=== PATIENT | male | born 1950 | race Two or more races ===

== ENCOUNTER 2024-07-08 19:11 | Inpatient (IN) | payer OTHER, MEDICAID ==
[~2024-07-08] VITALS: Ht 172.7 cm; Wt 79.3 kg
[2024-07-08] MEDS: SODIUM CHLORIDE 0.9% 1,000 ML IV SCH (01:10)
--- NOTE | 2024-07-08 19:34 | ED.PDOC ---
Altered Mental Status HPI Comments 73-year-old male who came to ER via EMS for altered level of consciousness. Per EMS, was picked up at home where family members noted patient to be acting altered and confused, slurred speech, generally weak and lethargic. Noted to be hypotensive on scene a 60/30 mmHg. Patient was given IV fluids, and it improved to 100/65 mmHg. Blood sugar was 98 and was saturating 100% on room air Chief Complaint: ALOC Time Seen by MD: 19:33 Reviewed Notes: Nurses Notes Information Source: Patient Mode of Arrival: EMS Severity: Unable to Care for Self Timing: Hours Duration: Since onset Quality: Decreased Alertness, Change in Behavior, Confusion Recent: None History of: Diabetes Past Medical History PAST MEDICAL HISTORY: DM, High Lipids, HTN Past Medical History (Other): Chronic back pain Surgical History: Pt Confused Family History Family History: Pt Confused Social History Smoker: Pt Confused Alcohol: Pt Confused Drugs: Pt Confused Lives In: Home Constitutional: reports: fatigue, weakness; denies: chills, diaphoresis, fever, malaise, sweats, others EENTM: denies: blurred vision, double vision, ear bleeding, ear discharge, ear drainage, ear pain, ear ringing, eye pain, eye redness, hearing loss, mouth pain, mouth swelling, nasal discharge, nose bleeding, nose congestion, nose pain, photophobia, tearing, throat pain, throat swelling, voice changes, others Respiratory: denies: cough, hemoptysis, orthopnea, SOB at rest, shortness of breath, SOB with excertion, stridor, wheezing, others Cardiovascular: denies: chest pain, dizzy spells, diaphoresis, Dyspnea on exertion, edema, irregular heart beat, left arm pain, lightheadedness, palpitations, PND, syncope, others Gastrointestinal: denies: abdomen distended, abdominal pain, blood streaked bowels, constipated, diarrhea, dysphagia, difficulty swallowing, hematemesis, melena, nausea, poor appetite, poor fluid intake, rectal bleeding, rectal pain, vomiting, others Genitourinary: denies: burning, dysuria, flank pain, frequency, hematuria, incontinence, penile discharge, penile sore, pain, testicle pain, testicle swelling, urgency, others Neurological: denies: dizziness, fainting, headache, left sided numbness, left sided weakness, numbness, paresthesia, pre-existing deficit, right sided numbness, right sided weakness, seizure, speech problems, tingling, tremors, weakness, others Musculoskeletal: denies: back pain, gout, joint pain, joint swelling, muscle pain, muscle stiffness, neck pain, others Integumetry: denies: bruises, change in color, change in hair/nails, dryness, laceration, lesions, lumps, rash, wounds, others Allergic/Immunocompromised: denies: Difficulty Healing, Frequent Infections, Hives, Itching, others Hematologic/Lymphatic: denies: anemia, blood clots, easy bleeding, easy bruising, swollen glands, others Endocrine: denies: excessive hunger, excessive sweating, excessive thirst, excessive urination, flushing, intolerance to cold, intolerance to heat, unexplained weight gain, unexplained weight loss, others Psychiatric: denies: anxiety, bipolar disorder, depression, hopeless, panic disorder, schizophrenia, sleepless, suicidal, others Physical Exam General Appearance: Mild Distress, Normal HEENT: Normal ENT Inspection, Pharynx Normal, TMs Normal Neck: Full Range of Motion, Non-Tender, Normal, Normal Inspection Respiratory: Chest Non-Tender, Lungs Clear, No Accessory Muscle Use, No R espiratory Distress, Normal Breath Sounds Cardiovascular: No Edema, No JVD, No Murmur, No Gallop, Normal Peripheral Pulses, Regular Rate/Rhythm Breast Exam: Deferred Gastrointestinal: No Organomegaly, Non Tender, No Pulsatile Mass, Normal Bowel Sounds, Soft Genitalia: Deferred Pelvic: Deferred Rectal: Deferred Extremities: No calf tenderness, Normal capillary refill, Normal inspection, Normal range of motion, Non-tender, No pedal edema Musculoskeletal : Apperance: Normal 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 Was a procedure done?: No Differential Diagnosis (ALOC) Differential Diagnosis: Dehydration, Encephalopathy, Seizure, CVA, Drug Overdose, Renal Failure, Other (Hypotension) X-Ray, Labs, Meds, VS Vital Signs Date Time Temp Pulse Resp B/P (MAP) Pulse Ox O2 Delivery O2 Flow Rate FiO2 07/08/24 19:40 97.7 68 14 138/114 (122) 94 97.7 07/08/24 19:11 97.6 74 18 100/54 (69) 99 Lab Test 07/08/24 21:28 07/08/24 21:12 07/08/24 20:09 Range/Units Troponin I High Sensitivity Pending 3 L </=54 ng/L Urine Color Yellow Yellow Urine Clarity Turbid H Clear Urine pH 6.0 5.0-9.0 Urine Specific [place] 1.017 1.001-1.035 Urine Protein Trace H Negative Urine Ketones Negative Negative Urine Blood Negative Negative /uL Urine Nitrite Negative Negative Urine Bilirubin Negative Negative Urine Urobilinogen Normal Negative mg/dL Urine Leukocyte Esterase Negative Negative /uL Urine RBC None seen 0 - 3 /hpf Urine Microscopic WBC 2 0-3 /HPF Urine Squamous Epithelial Cells Few <5 /hpf Urine Bacteria None seen None Seen /hpf Urine Hyaline Casts Mod 0 - 2 /lpf Urine Mucus Few None Seen Urine Glucose Normal Normal mg/dL Urine Opiates Screen Pending Urine Fentanyl Screen Pending Urine Barbiturates Screen Pending Urine Phencyclidine Screen Pending Urine Amphetamines Screen Pending Urine Benzodiazepines Screen Pending Urine Cocaine Screen Pending Urine Cannabinoids Screen Pending White Blood Count 5.9 4.4-10.8 10^3/uL Red Blood Count 4.08 L 4.5-5.90 10^6/uL Hemoglobin 13.6 13.5-17.5 g/dL Hematocrit 40.9 L 41.0-53.0 % Mean Corpuscular Volume 100.2 H 80.0-100.0 fL Mean Corpuscular Hemoglobin 33.4 H 28.0-32.0 pg Mean Corpuscular Hemoglobin Concent 33.3 32.0-36.0 g/dL Red Cell Distribution Width 13.5 11.8-14.3 % Platelet Count 274 140-450 10^3/uL Mean Platelet Volume 7.5 6.9-10.8 fL Neutrophils (%) (Auto) 67.6 37.0-80.0 % Lymphocytes (%) (Auto) 21.3 10.0-50.0 % Monocytes (%) (Auto) 6.6 0.0-12.0 % Eosinophils (%) (Auto) 3.7 0.0-7.0 % Basophils (%) (Auto) 0.8 0.0-2.0 % Neutrophils # (Auto) 4.0 1.6-8.6 10 ^3/uL Lymphocytes # (Auto) 1.3 0.4-5.4 10 ^3/uL Monocytes # (Auto) 0.4 0-1.3 10 ^3/uL Eosinophils # (Auto) 0.2 0-0.8 10 ^3/uL Basophils # (Auto) 0 0-0.2 10 ^3/uL Nucleated Red Blood Cells 0.0 % Prothrombin Time 10.6 9.3-11.8 sec Prothrombin Time INR 1.00 0.9-1.15 Activated Partial Thromboplast Time 27.4 24.5-34.5 SEC Sodium Level 139 136-145 mmol/L Potassium Level 4.8 3.5-5.1 mmol/L Chloride Level 107 98-107 mmol/L Carbon Dioxide Level 24 20-31 mmol/L Anion Gap 8 5-15 Blood Urea Nitrogen 18 9-23 mg/dL Creatinine 1.82 H 0.700-1.30 mg/dL Glomerular Filtration Rate Calc 39 >90 mL/min BUN/Creatinine Ratio 9.9 L 10.0-20.0 Serum Glucose 82 74-106 mg/dL Lactic Acid Level 0.8 0.4-2.0 mmol/L Calcium Level 9.7 8.7-10.4 mg/dL Magnesium Level 1.6 1.6-2.6 mg/dL Total Bilirubin 0.4 0.2-1.0 mg/dL Aspartate Amino Transferase (AST) 14 13-40 U/L Alanine Aminotransferase (ALT) 14 7-40 U/L Alkaline Phosphatase 61 46-116 U/L Total Protein 6.6 5.7-8.2 g/dL Albumin 4.5 3.2-4.8 g/dL Plasma/Serum Blood Alcohol 13.9 H <10 mg/dL Current Medications Medications (Trade) Dose Ordered Sig/Jessica Route Start Time Stop Time Status Last Admin Acetaminophen/ Hydrocodone Bitart ([place] 10/325MG Tab) 1 tab ONCE ONCE PO 07/08/24 21:00 07/08/24 21:02 DC 07/08/24 21:00 CT BRAIN WITHOUT CONTRAST HISTORY: slurred speech TECHNIQUE: Axial scans were obtained from the skull base through the vertex without contrast. Sagittal and coronal reformats were generated. One or more of the following radiation dose reduction techniques were used for this examination: automated exposure control, adjustment of the mA and/or kV according to patient size, use of iterative reconstruction technique. COMPARISON: None FINDINGS: No acute intracranial hemorrhage. Patchy periventricular and subcortical white matter hypoattenuation is noted bilaterally. No midline shift. The basilar cisterns are patent. Minimal mucosal thickening in the partially imaged right maxillary sinus. The mastoid air cells are clear. No grossly displaced calvarial abnormalities identified. IMPRESSION: No acute intracranial hemorrhage. Patchy hypoattenuation in the periventricular and subcortical white matter is nonspecific but may be sequelae of chronic microangiopathy. However, given the clinical history, acute infarcts can not be entirely excluded. MRI is recommended to further evaluate. CHEST RADIOGRAPH Indication: slurred speech Technique: Single frontal view of the chest was obtained Comparison: None Findings/ IMPRESSION: Elevated left hemidiaphragm with left basilar atelectasis. A superimposed infectious process not excluded. Right lung is clear. White blood cell count is low Creatinine is 1.82. UA is normal. Alcohol is 14. UDS is pending Troponin is normal and EKG shows no signs of ischemia. Chest x-ray shows possible pneumonia. CT pending The patient was severely dehydrated and possibly passed out with a low blood pressure 50/30 upon arrival IV fluid has increase his blood pressure however with constant drinking which probably made him dehydrated the patient will be admitted for evaluation ammonia. Time of 1ST Reevaluation: 19:30 Reevaluation 1ST: Unchanged Patient Education/Counseling: Diagnosis, Treatment Family Education/Counseling: No Family Present Departure 1 Departure Time of Disposition: 22:05 Impression: Primary Impression: Altered mental status Qualified Codes: R41.0 - Disorientation, unspecified Additional Impressions: Metabolic encephalopathy Alcohol use Dehydration Disposition: ADMITTED INPATIENT Admit to: Tele Condition: Guarded Critical Care Note Critical Care Time?: Yes (35 min-critical care time only) Critical care comment: Critical care altered level of consciousness, hypotension Stability Stability form required: No Heart Score Heart Score: Heart Score Response (Comments) Value History N/A 0 EKG N/A 0 Age N/A 0 Risk Factors N/A 0 Troponin N/A 0 Total 0 I personally scribed for ZOIE CORTÉS MD ([email or web address]) on 07/08/24 at 19:34. Electronically submitted by Sridhar William ([email or web address]). I personally scribed for ZOIE CORTÉS MD ([facility] on 07/08/24 at 21:12. Electronically submitted by Sridhar William ([email or web address]). I personally scribed for ZOIE CORTÉS MD ([facility]) on 07/08/24 at 21:28. Electronically submitted by Sridhar William ([email or web address]). ZOIE CORTÉS MD Jul 08, 2024 19:34
[2024-07-08 19:40] VITALS: RESP 15; O2SAT 95
[2024-07-08 20:25] LABS: Basophils # (auto) 0 10 ^3/uL (0-0.2); Basophils % (auto) 0.8 % (0.0-2.0); Eosinophils # (auto) 0.2 10 ^3/uL (0-0.8); Eosinophils % (auto) 3.7 % (0.0-7.0); Hematocrit 40.9 % (41.0-53.0); Hemoglobin 13.6 g/dL (13.5-17.5); Lymphocytes # (auto) 1.3 10 ^3/uL (0.4-5.4); Lymphocytes % (auto) 21.3 % (10.0-50.0); Mean Corpuscular Hemoglobin 33.4 pg (28.0-32.0); Mean Corpuscular Hgb Conc. 33.3 g/dL (32.0-36.0); Mean Corpuscular Volume 100.2 fL (80.0-100.0); Monocytes # (auto) 0.4 10 ^3/uL (0-1.3); Monocytes % (auto) 6.6 % (0.0-12.0); Neutrophils % (auto) 67.6 % (37.0-80.0); Platelet Count (auto) 274 10^3/uL (140-450); Red Blood Cells 4.08 10^6/uL (4.5-5.90); Red Cell Distribution Width 13.5 % (11.8-14.3); White Blood Cell 5.9 10^3/uL (4.4-10.8)
[2024-07-08 20:44] LABS: Alanine Aminotransferase 14 U/L (7-40); Albumin 4.5 g/dL (3.2-4.8); Alkaline Phosphatase 61 U/L (46-116); Anion Gap 8 (5-15); Aspartate Aminotransferase 14 U/L (13-40); BUN/Creatinine Ratio 9.9 (10.0-20.0); Blood Alcohol 13.9 mg/dL (<10); Blood Urea Nitrogen 18 mg/dL (9-23); Calcium 9.7 mg/dL (8.7-10.4); Carbon Dioxide 24 mmol/L (20-31); Chloride 107 mmol/L (98-107); Glucose 82 mg/dL (74-106); Magnesium 1.6 mg/dL (1.6-2.6); Partial Thromboplastin Time 27.4 SEC (24.5-34.5); Potassium 4.8 mmol/L (3.5-5.1); Prothrombin Time 10.6 sec (9.3-11.8); Sodium 139 mmol/L (136-145)
[2024-07-08 20:45] LABS: Bilirubin, Total 0.4 mg/dL (0.2-1.0); Total Protein 6.6 g/dL (5.7-8.2)
[2024-07-08] MEDS: HYDROcodone-ACET 10/325MG TAB PO ONE (21:00)
--- NOTE | 2024-07-08 21:00 | DVH ---
CT BRAIN WITHOUT CONTRAST HISTORY: slurred speech TECHNIQUE: Axial scans were obtained from the skull base through the vertex without contrast. Sagitta l and coronal reformats were generated. One or more of the following radiation dose reduction techniq ues were used for this examination: automated exposure control, adjustment of the mA and/or kV accord ing to patient size, use of iterative reconstruction technique. COMPARISON: None FINDINGS: No acute intracranial hemorrhage. Patchy periventricular and subcortical white matter hypoattenuatio n is noted bilaterally. No midline shift. The basilar cisterns are patent. Minimal mucosal thickening in the partially imaged right maxillary sinus. The mastoid air cells are clear. No grossly displaced calvarial abnormalities identified. IMPRESSION: No acute intracranial hemorrhage. Patchy hypoattenuation in the periventricular and subcortical white matter is nonspecific but may be sequelae of chronic microangiopathy. However, given the clinical hi story, acute infarcts can not be entirely excluded. MRI is recommended to further evaluate.
--- NOTE | 2024-07-08 21:13 | DVH ---
CHEST RADIOGRAPH Indication: slurred speech Technique: Single frontal view of the chest was obtained Comparison: None Findings/ IMPRESSION: Elevated left hemidiaphragm with left basilar atelectasis. A superimposed infectious process not exc luded. Right lung is clear.
[2024-07-08 21:34] LABS: Urine Bacteria None Seen /hpf (None Seen)
[2024-07-08 21:45] LABS: Urine Blood Negative /uL (Negative); Urine Clarity Turbid (Clear); Urine Color Yellow (Yellow); Urine Hyaline Cast MOD /lpf (0 - 2); Urine Mucus FEW (None Seen); Urine Protein, UAD TRACE (Negative); Urine Specific Gravity 1.017 (1.001-1.035); Urine Squamous Epithelial Cell FEW /hpf (<5); Urine Urobilinogen Normal (Negative); Urine WBC 2 /HPF (0-3)
[2024-07-08 22:01] LABS: Benzodiazephine Screen, Urine Pos (NEGATIVE)
[2024-07-08 22:02] LABS: Amphetamine Screen, Urine Neg (NEGATIVE); Barbiturate Scree,Urine Neg (NEGATIVE); Cannabinoid Screen, Urine Neg (NEGATIVE); Cocaine Screen, Urine Neg (NEGATIVE); Opiate Scree,Urine Pos (NEGATIVE); Phencyclidine Screen, Urine Neg (NEGATIVE)
[2024-07-08] MEDS ORDERED: MORPHINE SULFATE INJ 2 MG/ml SYRG IV PRN (23:30)
[2024-07-08] MEDS ORDERED: ACETAMINOPHEN 325 MG TAB PO PRN (23:30)
[2024-07-08] MEDS ORDERED: hydrALAZINE HCL 20 MG/ML VL IV PRN (23:30)
[2024-07-08] MEDS ORDERED: ONDANSETRON HCL 4 MG/2 ML VIAL IV PRN (23:30)
[2024-07-08] MEDS ORDERED: DOCUSATE SOD 100 MG CAP PO PRN (23:30)
[2024-07-08] MEDS ORDERED: DEXTROSE (50%) 50ML SYRG IV PRN (23:30)
[2024-07-08] MEDS ORDERED: NITROGLYCERIN 0.4 MG SL TAB SL PRN (23:30)
--- NOTE | 2024-07-08 23:43 | DVHHP2 ---
History of Present Illness Reason for Visit: Altered mental status History of Present Illness The patient is a 73-year-old male with past medical history of hypertension, chronic back pain, hyperlipidemia, and diabetes mellitus who presented to [facility] ED for evaluation of altered level of consciousness. As reported by EMS, patient was picked up at home were family member noted patient to be acting altered, confusion state, slurred speech, generalized weakness, lethargic, getting worse that EMS were called. Patient was seen and evaluated in the ED, laboratory data shows WBC 5.9, platelets 274, sodium 139, potassium 4.8, BUN 18, creatinine 1.82, GFR 39, glucose 82, troponin 3, serum alcohol 13.9, blood pressure 100/54, heart rate 68, temperature 97.7 F, O2 saturation 94% on oxygen. Head CT showed no acute intracranial hemorrhage. Please see medication orders section in the computer. On my assessment, at bedside, patient on confusion state, but denies chest pain, no headache, no diaphoresis, no shortness of breaths, no nausea, no vomiting, no fever, no chills. Patient was admitted for further evaluation and medical management. Past Medical History DM, High Lipids, HTN, Chronic back pain, depression Past Surgical History No surgical history on file Family History Reviewed, noncontributory to the management of this case. Past Social History The patient lives at home, denies smoking, alcohol or illicit drugs abuse. Review of Systems Constitutional: Yes: Weakness; No: Fever, Chills, Sweats, Malaise, Other Eyes: No: Pain, Vision change, Conjunctivae inflammation, Eyelid inflammation, Other, Redness ENT: No: Ear pain, Ear discharge, Nose pain, Nose discharge, Nose congestion, Mouth pain, Mouth swelling, Throat pain, Throat swelling, Other Respiratory: No: Cough, Dry, Shortness of breath, SOB with excertion, Wheezing, Hemoptysis, Pleuritic Pain, Sputum, Wheezing, Other Cardiovascular: No: Chest Pain, Palpitations, Orthopnea, Paroxysmal Noc. Dyspnea, Edema, Lt Headedness, Other Gastrointestinal: No: Nausea, Vomiting, Abdominal Pain, Diarrhea, Constipation, Melena, Hematochezia, Other Genitourinary: No Dysuria, No Frequency, No Incontinence, No Hematuria, No Ret ention, No Other Musculoskeletal: No: other, neck pain, shoulder pain, arm pain, back pain, hand pain, leg pain, foot pain Skin: No: Rash, Lesions, Jaundice, Bruising, Other Neurological: Other (Altered level of consciousness); No: Weakness, Numbness, Incoordination, Change in speech, Confusion, Seizures Allergies: Coded Allergies: NSAIDs (Verified Allergy, Unknown, 07/08/24) Exam Vital Signs Vital Signs Date Time Temp Pulse Resp B/P (MAP) Pulse Ox O2 Delivery O2 Flow Rate FiO2 07/08/24 19:40 97.7 68 14 138/114 (122) 94 97.7 General Appearance: Alert, Cooperative, No acute distress, Other (Oriented x2) HEENT: Atraumatic, PERRLA, EOMI, Mucous membr. moist/pink Respiratory: Clear to auscultation, Normal air movement Cardiovascular: Regular rate, Normal S1, Normal S2, No murmurs Abdominal: Normal bowel sounds, Soft, No tenderness, No hepatospenomegaly, No masses Extremities: No clubbing, No cyanosis, No edema, Normal pulses, No tenderness/swelling Skin: No rashes, No breakdown, No significant lesion Neuro: Normal speech, Normal tone, Sensation intact, Cranial nerves 3-12 NL, Reflexes 2+, Other (Generalized weakness) Psych/Mental Status: Mental status NL, Mood NL Labs/Xrays Labs Test 07/08/24 21:28 07/08/24 21:12 07/08/24 20:09 Range/Units Troponin I High Sensitivity 3 L </=54 ng/L Urine Color Yellow Yellow Urine Clarity Turbid H Clear Urine pH 6.0 5.0-9.0 Urine Specific [place] 1.017 1.001-1.035 Urine Protein Trace H Negative Urine Ketones Negative Negative Urine Blood Negative Negative /uL Urine Nitrite Negative Negative Urine Bilirubin Negative Negative Urine Urobilinogen Normal Negative mg/dL Urine Leukocyte Esterase Negative Negative /uL Urine RBC None seen 0 - 3 /hpf Urine Microscopic WBC 2 0-3 /HPF Urine Squamous Epithelial Cells Few <5 /hpf Urine Bacteria None seen None Seen /hpf Urine Hyaline Casts Mod 0 - 2 /lpf Urine Mucus Few None Seen Urine Glucose Normal Normal mg/dL Urine Opiates Screen Pos NEGATIVE Urine Fentanyl Screen Neg NEGATIVE Urine Barbiturates Screen Neg NEGATIVE Urine Phencyclidine Screen Neg NEGATIVE Urine Amphetamines Screen Neg NEGATIVE Urine Benzodiazepines Screen Pos NEGATIVE Urine Cocaine Screen Neg NEGATIVE Urine Cannabinoids Screen Neg NEGATIVE White Blood Count 5.9 4.4-10.8 10^3/uL Red Blood Count 4.08 L 4.5-5.90 10^6/uL Hemoglobin 13.6 13.5-17.5 g/dL Hematocrit 40.9 L 41.0-53.0 % Mean Corpuscular Volume 100.2 H 80.0-100.0 fL Mean Corpuscular Hemoglobin 33.4 H 28.0-32.0 pg Mean Corpuscular Hemoglobin Concent 33.3 32.0-36.0 g/dL Red Cell Distribution Width 13.5 11.8-14.3 % Platelet Count 274 140-450 10^3/uL Mean Platelet Volume 7.5 6.9-10.8 fL Neutrophils (%) (Auto) 67.6 37.0-80.0 % Lymphocytes (%) (Auto) 21.3 10.0-50.0 % Monocytes (%) (Auto) 6.6 0.0-12.0 % Eosinophils (%) (Auto) 3.7 0.0-7.0 % Basophils (%) (Auto) 0.8 0.0-2.0 % Neutrophils # (Auto) 4.0 1.6-8.6 10 ^3/uL Lymphocytes # (Auto) 1.3 0.4-5.4 10 ^3/uL Monocytes # (Auto) 0.4 0-1.3 10 ^3/uL Eosinophils # (Auto) 0.2 0-0.8 10 ^3/uL Basophils # (Auto) 0 0-0.2 10 ^3/uL Nucleated Red Blood Cells 0.0 % Prothrombin Time 10.6 9.3-11.8 sec Prothrombin Time INR 1.00 0.9-1.15 Activated Partial Thromboplast Time 27.4 24.5-34.5 SEC Sodium Level 139 136-145 mmol/L Potassium Level 4.8 3.5-5.1 mmol/L Chloride Level 107 98-107 mmol/L Carbon Dioxide Level 24 20-31 mmol/L Anion Gap 8 5-15 Blood Urea Nitrogen 18 9-23 mg/dL Creatinine 1.82 H 0.700-1.30 mg/dL Glomerular Filtration Rate Calc 39 >90 mL/min BUN/Creatinine Ratio 9.9 L 10.0-20.0 Serum Glucose 82 74-106 mg/dL Lactic Acid Level 0.8 0.4-2.0 mmol/L Calcium Level 9.7 8.7-10.4 mg/dL Magnesium Level 1.6 1.6-2.6 mg/dL Total Bilirubin 0.4 0.2-1.0 mg/dL Aspartate Amino Transferase (AST) 14 13-40 U/L Alanine Aminotransferase (ALT) 14 7-40 U/L Alkaline Phosphatase 61 46-116 U/L Total Protein 6.6 5.7-8.2 g/dL Albumin 4.5 3.2-4.8 g/dL Plasma/Serum Blood Alcohol 13.9 H <10 mg/dL PATIENT: VINNIE ADAIR ACCT: [id number] UNIT: [id number] : 1950 LOC: ER ROOM / BED: / AGE / SEX: 73 / M ADM STATUS: REG ER SERVICE 22 ORDERING PHYSICIAN: ZOIE CORTÉS MD PROCEDURE(s): HWOCT - HEAD WITHOUT CONTRAST REASON: slurred speech ORDER NUMBER(s): [id number], ACCESSION NUMBER(s): [id number] CT BRAIN WITHOUT CONTRAST HISTORY: slurred speech TECHNIQUE: Axial scans were obtained from the skull base through the vertex without contrast. Sagittal and coronal reformats were generated. One or more of the following radiation dose reduction techniques were used for this examination: automated exposure control, adjustment of the mA and/or kV according to patient size, use of iterative reconstruction technique. COMPARISON: None FINDINGS: No acute intracranial hemorrhage. Patchy periventricular and subcortical white matter hypoattenuation is noted bilaterally. No midline shift. The basilar cisterns are patent. Minimal mucosal thickening in the partially imaged right maxillary sinus. The mastoid air cells are clear. No grossly displaced calvarial abnormalities identified. IMPRESSION: No acute intracranial hemorrhage. Patchy hypoattenuation in the periventricular and subcortical white matter is nonspecific but may be sequelae of chronic microangiopathy. However, given the clinical history, acute infarcts can not be entirely excluded. MRI is recommended to further evaluate. ORDERING PHYSICIAN: ZOIE CORTÉS MD PROCEDURE(s): CXRP - CHEST PORTABLE REASON: slurred speech ORDER NUMBER(s): [id number], ACCESSION NUMBER(s): [id number] CHEST RADIOGRAPH Indication: slurred speech Technique: Single frontal view of the chest was obtained Comparison: None Findings/ IMPRESSION: Elevated left hemidiaphragm with left basilar atelectasis. A superimposed infectious process not excluded. Right lung is clear. Assessment/Plan Assessment/Plan Altered mental status Disorientation, unspecified Alcohol use Dehydration Generalized weakness Metabolic encephalopathy Plan 1. Admit to telemetry unit 2. Breathing treatment 3. Pain control management 4. Management of fluids and electrolytes 5. Consultation for hospitalist 6. Diagnostic tests chest x-ray 7. DVT prophylaxis-on SCDs 8. Repeat labs CBC, CMP in a.m. 9. Continue with current medical management 10. Treatment plan discussed with patient and RN. Patient/ verbalized understanding. Plan discussed with: Patient, Other (RN) Problem List: (1) Altered mental status (2) Disorientation, unspecified (3) Alcohol use (4) Dehydration (5) Generalized weakness (6) Metabolic encephalopathy Date of Service: Jul 08, 2024 Billing Provider: LITA NUNO DNP Common Visit Codes: [id number] INP/OBS CARE (HIGH) LITA NUNO DNP Jul 08, 2024 23:43
[2024-07-09] VITALS (7 sets, daily range): BP systolic 139–154; BP diastolic 72–83; PULSE 61–80; RESP 18–19; TEMP 97.8–98.8; O2SAT 92–95
[2024-07-09] MEDS: HYDROcodone-ACET 5/325MG TAB PO PRN (01:33)
[2024-07-09 03:43] LABS: Basophils # (auto) 0 10 ^3/uL (0-0.2); Basophils % (auto) 0.6 % (0.0-2.0); Eosinophils # (auto) 0.3 10 ^3/uL (0-0.8); Eosinophils % (auto) 4.1 % (0.0-7.0); Hematocrit 41.4 % (41.0-53.0); Hemoglobin 13.9 g/dL (13.5-17.5); Lymphocytes # (auto) 1.8 10 ^3/uL (0.4-5.4); Lymphocytes % (auto) 26.5 % (10.0-50.0); Mean Corpuscular Hemoglobin 33.6 pg (28.0-32.0); Mean Corpuscular Hgb Conc. 33.6 g/dL (32.0-36.0); Mean Corpuscular Volume 99.9 fL (80.0-100.0); Monocytes # (auto) 0.6 10 ^3/uL (0-1.3); Monocytes % (auto) 8.4 % (0.0-12.0); Neutrophils # (auto) 4.1 10 ^3/uL (1.6-8.6); Neutrophils % (auto) 60.4 % (37.0-80.0); Platelet Count (auto) 268 10^3/uL (140-450); Red Blood Cells 4.14 10^6/uL (4.5-5.90); Red Cell Distribution Width 13.6 % (11.8-14.3); White Blood Cell 6.8 10^3/uL (4.4-10.8)
[2024-07-09 03:57] LABS: Alanine Aminotransferase 15 U/L (7-40); Albumin 4.2 g/dL (3.2-4.8); Alkaline Phosphatase 60 U/L (46-116); Anion Gap 6 (5-15); Aspartate Aminotransferase 15 U/L (13-40); Blood Urea Nitrogen 19 mg/dL (9-23); Calcium 10.2 mg/dL (8.7-10.4); Carbon Dioxide 22 mmol/L (20-31); Glucose 105 mg/dL (74-106); Potassium 4.6 mmol/L (3.5-5.1); Sodium 136 mmol/L (136-145)
[2024-07-09 03:58] LABS: Bilirubin, Total 0.4 mg/dL (0.2-1.0); Total Protein 6.6 g/dL (5.7-8.2)
[2024-07-09 04:17] LABS: Chloride 108 mmol/L (98-107)
[2024-07-09] MEDS: InsuLIN REG 1unit/0.01ml Soln (100units/ml) SC SCH (07:00)
[2024-07-09] MEDS: ACCU-CHEK COMFORT CURVE STRIP VI SCH (07:22)
[2024-07-09] MEDS: MULTIPLE VITAMIN TAB PO SCH (09:37)
[2024-07-09] MEDS: SERTRALINE HCL 50 MG TAB PO SCH (09:38)
[2024-07-09] MEDS: FOLIC ACID 1 MG TAB PO SCH (09:38)
[2024-07-09] MEDS: amLODIPine BESYLATE 5 MG TAB PO SCH (09:40)
--- NOTE | 2024-07-09 15:58 | DVHDS2 ---
Discharge Summary Date of Admission Jul 08, 2024 at 23:16 Date of Discharge: Jul 09, 2024 Labs/Diagnostic Data: Laboratory Results Test 07/09/24 11:21 07/09/24 03:27 07/08/24 21:28 07/08/24 21:12 POC Glucose 97 mg/dl (70-106) White Blood Count 6.8 10^3/uL (4.4-10.8) Red Blood Count 4.14 10^6/uL (4.5-5.90) Hemoglobin 13.9 g/dL (13.5-17.5) Hematocrit 41.4 % (41.0-53.0) Mean Corpuscular Volume 99.9 fL (80.0-100.0) Mean Corpuscular Hemoglobin 33.6 pg (28.0-32.0) Mean Corpuscular Hemoglobin Concent 33.6 g/dL (32.0-36.0) Red Cell Distribution Width 13.6 % (11.8-14.3) Platelet Count 268 10^3/uL (140-450) Mean Platelet Volume 7.6 fL (6.9-10.8) Neutrophils (%) (Auto) 60.4 % (37.0-80.0) Lymphocytes (%) (Auto) 26.5 % (10.0-50.0) Monocytes (%) (Auto) 8.4 % (0.0-12.0) Eosinophils (%) (Auto) 4.1 % (0.0-7.0) Basophils (%) (Auto) 0.6 % (0.0-2.0) Neutrophils # (Auto) 4.1 10 ^3/uL (1.6-8.6) Lymphocytes # (Auto) 1.8 10 ^3/uL (0.4-5.4) Monocytes # (Auto) 0.6 10 ^3/uL (0-1.3) Eosinophils # (Auto) 0.3 10 ^3/uL (0-0.8) Basophils # (Auto) 0 10 ^3/uL (0-0.2) Nucleated Red Blood Cells 0.0 % Sodium Level 136 mmol/L (136-145) Potassium Level 4.6 mmol/L (3.5-5.1) Chloride Level 108 mmol/L (98-107) Carbon Dioxide Level 22 mmol/L (20-31) Anion Gap 6 (5-15) Blood Urea Nitrogen 19 mg/dL (9-23) Creatinine 1.58 mg/dL (0.700-1.30) Glomerular Filtration Rate Calc 46 mL/min (>90) BUN/Creatinine Ratio 12.0 (10.0-20.0) Serum Glucose 105 mg/dL (74-106) Lactic Acid Level 1.0 mmol/L (0.4-2.0) Calcium Level 10.2 mg/dL (8.7-10.4) Total Bilirubin 0.4 mg/dL (0.2-1.0) Aspartate Amino Transferase (AST) 15 U/L (13-40) Alanine Aminotransferase (ALT) 15 U/L (7-40) Alkaline Phosphatase 60 U/L (46-116) Total Protein 6.6 g/dL (5.7-8.2) Albumin 4.2 g/dL (3.2-4.8) Plasma/Serum Blood Alcohol < 3.0 mg/dL (<10) Troponin I High Sensitivity 3 ng/L (</=54) Urine Color Yellow (Yellow) Urine Clarity Turbid (Clear) Urine pH 6.0 (5.0-9.0) Urine Specific [place] 1.017 (1.001-1.035) Urine Protein Trace (Negative) Urine Ketones Negative (Negative) Urine Blood Negative /uL (Negative) Urine Nitrite Negative (Negative) Urine Bilirubin Negative (Negative) Urine Urobilinogen Normal mg/dL (Negative) Urine Leukocyte Esterase Negative /uL (Negative) Urine RBC None seen /hpf (0 - 3) Urine Microscopic WBC 2 /HPF (0-3) Urine Squamous Epithelial Cells Few /hpf (<5) Urine Bacteria None seen /hpf (None Seen) Urine Hyaline Casts Mod /lpf (0 - 2) Urine Mucus Few (None Seen) Urine Glucose Normal mg/dL (Normal) Urine Opiates Screen Pos (NEGATIVE) Urine Fentanyl Screen Neg (NEGATIVE) Urine Barbiturates Screen Neg (NEGATIVE) Urine Phencyclidine Screen Neg (NEGATIVE) Urine Amphetamines Screen Neg (NEGATIVE) Urine Benzodiazepines Screen Pos (NEGATIVE) Urine Cocaine Screen Neg (NEGATIVE) Urine Cannabinoids Screen Neg (NEGATIVE) Test 07/08/24 20:09 Prothrombin Time 10.6 sec (9.3-11.8) Prothrombin Time INR 1.00 (0.9-1.15) Activated Partial Thromboplast Time 27.4 SEC (24.5-34.5) Magnesium Level 1.6 mg/dL (1.6-2.6) Other Laboratory Tests 07/09/24 03:27 Brief Hx & Hospital Course: 73-year-old male with a known history of hypertension, dyslipidemia, chronic insomnia, anxiety disorder jejunal with the altered mental status. The patient was recommended to be admitted for ruling out acute stroke. CT head was negative for any acute pathology. Patient MRI was done which shows no evidence of any acute pathology. Patient is being discharged under stable condition he is more awake alert and oriented and at baseline. Please return to ER if there is any concern. Condition at Discharge: Stable Final Diagnosis/Problems List 1. Dizziness and hand tremors with altered mental status rule out acute CVA 2. Hypertension 3. Dyslipidemia 4.anxiety disorder 5. Chronic insomnia Discharge Disposition: Home SNF Discharge Will this Physician continue t: No Discharge Instruct/Medications Diet: Cardiac 2g Na,low cholest Activity: No Restrictions, As Tolerated Follow Up/Referral: Please follow up with the PCP in 1-2 weeks Follow up with Neurology in 1-2 weeks Medications: Resume home medications Discharge Statement: "Patient was advised to return to the ER or call 911 if any headaches, dizziness, shortness of breath, chest pain, abdominal pain, bleeding, fevers, or worsening of medical condition. Patient was counseled about treatment plan, medications, possible side effects, patientverbalized understanding. All questions were answered to the best of my ability. This discharge took greater then 30 minutes in planning, reviewing documentation, counseling the patient, and discussing with other team members." ASSESSMENT ASSESSMENT Assessment 1. Dizziness and hand tremors with altered mental status rule out acute CVA 2. Hypertension 3. Dyslipidemia 4.anxiety disorder 5. Chronic insomnia Date of Service: Jul 09, 2024 Billing Provider: COURTNEY MOORE MD Common Visit Codes: NOT BILLABLE COURTNEY MOORE MD Jul 09, 2024 15:58
--- NOTE | 2024-07-09 16:22 | DVH ---
EXAM: US KIDNEY INDICATION: mary ellen TECHNIQUE: Multiple real-time sonographic images of the kidneys and bladder were obtained. COMPARISON: None Findings: Right kidney measures 9.8 cm with normal contours, echotexture, and cortical thickness. No evidence o f hydronephrosis, calculi, cystic or solid lesions. Left kidney measures 9.9 cm with normal contours, echotexture, and cortical thickness. No evidence of hydronephrosis, calculi, cystic or solid lesions. Urinary bladder is unremarkable without evidence of abnormal wall thickening, mass, or calculi. Prevo id volume 272.4 mL. Postvoid volume was not obtained. Impression: 1. Unremarkable sonographic study of the bilateral kidneys and urinary bladder.
--- NOTE | 2024-07-09 16:27 | DVHINCON2 ---
Date of service: Jul 09, [address] Curtis Reason for Consultation Acute kidney injury History of Present Illness 73-year-old male history of chronic back pain history of lumbar surgery, history of depression or medications. History of chronic pain sees pain specialist. Reports was previously told his kidney function was stage II. Patient on multiple sedative medications. Presents to the hospital after acute episode of confusion and near loss of balance. Presentation he was noted to be hypotensive. Nephrology was consulted due to elevated creatinine level of creatinine of 1.82 on admission which was improved to 1.58 after IV fluids. Allergies: Coded Allergies: NSAIDs (Verified Allergy, Unknown, 07/08/24) Home Meds Unable to Obtain Active Prescriptions or Reported Meds Current Medications Current Medications Medications (Trade) Dose Ordered Sig/Jessica Route PRN Reason Start Time Stop Time Status Last Admin Atorvastatin Calcium (Lipitor) 10 mg HS PO 07/09/24 22:00 Sertraline HCl (Zoloft) 100 mg DAILY PO 07/09/24 10:00 07/09/24 09:38 Tamsulosin HCl (Flomax) 0.4 mg QPM PO 07/09/24 18:00 Trazodone HCl (Desyrel) 50 mg HS PO 07/09/24 22:00 Folic Acid 1 mg DAILY PO 07/09/24 10:00 07/09/24 09:38 Amlodipine Besylate (Norvasc Tablet) 5 mg DAILY PO 07/09/24 10:00 07/09/24 09:40 Hydralazine HCl (Apresoline Injection) 10 mg Q6HP PRN IV SBP>150 07/08/24 23:30 Diagnostic Test (Pha) (Accu-Chek Comfort Curve T) 1 strip ACHS 07/09/24 07:00 07/09/24 11:23 Insulin Human Regular (InsuLIN R) ACHS SC 07/09/24 07:00 Dextrose 50 ml UD PRN IV Blood Sugar LESS THAN 60 07/08/24 23:30 Sodium Chloride 1,000 ml @ 60 mls/hr [id number] IV 07/08/24 23:30 07/09/24 16:10 Acetaminophen/ Hydrocodone Bitart ([place] 5/325MG Tab) 1 tab Q4HP PRN PO MODERATE PAIN (4-6 PAIN SCALE) 07/08/24 23:30 07/09/24 11:06 Ondansetron HCl (Zofran) 4 mg Q4HP PRN IV NAUSEA / VOMITING 07/08/24 23:30 Docusate Sodium (Colace Capsule) 100 mg BIDPRN PRN PO FOR CONSTIPATION 07/08/24 23:30 Multivitamins (Mvi Tab) 1 tab DAILY PO 07/09/24 10:00 07/09/24 09:37 Acetaminophen (Tylenol Tablet) 650 mg Q6HP PRN PO PAIN SCALE 1-3 OR TEMP>100.4 07/08/24 23:30 Nitroglycerin (Ntrostat Sublingual) 0.4 mg Q5MINP PRN SL FOR CHEST PAIN 07/08/24 23:30 Morphine Sulfate 2 mg Q30M PRN IV FOR CHEST PAIN 07/08/24 23:30 Family History: Patient reports no known family medical history. Review of Systems Altered mental status and near syncope H&P Exam Vital Signs/I&O Vital Sign Date Time Temp Pulse Resp B/P (MAP) Pulse Ox O2 Delivery O2 Flow Rate FiO2 07/09/24 13:00 98.8 74 18 152/77 (102) 93 98.8 07/09/24 08:26 Room Air* 0 21 Intake and Output 07/08/24 07/09/24 19:00 07:00 # Voids 2 Physical Exam Elderly white male Nonacute distress Abdomen is soft No pitting edema Normal skin turgor No elevated JVD No pitting edema Regular rate and rhythm Labs/Diagnostic Data Labs/Diagnostic Data Laboratory Tests Test 07/09/24 11:21 07/09/24 05:50 07/09/24 03:27 07/08/24 21:28 Range/Units POC Glucose 97 96 70-106 mg/dl White Blood Count 6.8 4.4-10.8 10^3/uL Red Blood Count 4.14 L 4.5-5.90 10^6/uL Hemoglobin 13.9 13.5-17.5 g/dL Hematocrit 41.4 41.0-53.0 % Mean Corpuscular Volume 99.9 80.0-100.0 fL Mean Corpuscular Hemoglobin 33.6 H 28.0-32.0 pg Mean Corpuscular Hemoglobin Concent 33.6 32.0-36.0 g/dL Red Cell Distribution Width 13.6 11.8-14.3 % Platelet Count 268 140-450 10^3/uL Mean Platelet Volume 7.6 6.9-10.8 fL Neutrophils (%) (Auto) 60.4 37.0-80.0 % Lymphocytes (%) (Auto) 26.5 10.0-50.0 % Monocytes (%) (Auto) 8.4 0.0-12.0 % Eosinophils (%) (Auto) 4.1 0.0-7.0 % Basophils (%) (Auto) 0.6 0.0-2.0 % Neutrophils # (Auto) 4.1 1.6-8.6 10 ^3/uL Lymphocytes # (Auto) 1.8 0.4-5.4 10 ^3/uL Monocytes # (Auto) 0.6 0-1.3 10 ^3/uL Eosinophils # (Auto) 0.3 0-0.8 10 ^3/uL Basophils # (Auto) 0 0-0.2 10 ^3/uL Nucleated Red Blood Cells 0.0 % Sodium Level 136 136-145 mmol/L Potassium Level 4.6 3.5-5.1 mmol/L Chloride Level 108 H 98-107 mmol/L Carbon Dioxide Level 22 20-31 mmol/L Anion Gap 6 5-15 Blood Urea Nitrogen 19 9-23 mg/dL Creatinine 1.58 H 0.700-1.30 mg/dL Glomerular Filtration Rate Calc 46 >90 mL/min BUN/Creatinine Ratio 12.0 10.0-20.0 Serum Glucose 105 74-106 mg/dL Lactic Acid Level 1.0 0.4-2.0 mmol/L Calcium Level 10.2 8.7-10.4 mg/dL Total Bilirubin 0.4 0.2-1.0 mg/dL Aspartate Amino Transferase (AST) 15 13-40 U/L Alanine Aminotransferase (ALT) 15 7-40 U/L Alkaline Phosphatase 60 46-116 U/L Total Protein 6.6 5.7-8.2 g/dL Albumin 4.2 3.2-4.8 g/dL Plasma/Serum Blood Alcohol < 3.0 <10 mg/dL Troponin I High Sensitivity 3 L </=54 ng/L Test 07/08/24 21:12 07/08/24 20:09 Range/Units Urine Color Yellow Yellow Urine Clarity Turbid H Clear Urine pH 6.0 5.0-9.0 Urine Specific [place]ass 1.017 1.001-1.035 Urine Protein Trace H Negative Urine Ketones Negative Negative Urine Blood Negative Negative /uL Urine Nitrite Negative Negative Urine Bilirubin Negative Negative Urine Urobilinogen Normal Negative mg/dL Urine Leukocyte Esterase Negative Negative /uL Urine RBC None seen 0 - 3 /hpf Urine Microscopic WBC 2 0-3 /HPF Urine Squamous Epithelial Cells Few <5 /hpf Urine Bacteria None seen None Seen /hpf Urine Hyaline Casts Mod 0 - 2 /lpf Urine Mucus Few None Seen Urine Glucose Normal Normal mg/dL Urine Opiates Screen Pos NEGATIVE Urine Fentanyl Screen Neg NEGATIVE Urine Barbiturates Screen Neg NEGATIVE Urine Phencyclidine Screen Neg NEGATIVE Urine Amphetamines Screen Neg NEGATIVE Urine Benzodiazepines Screen Pos NEGATIVE Urine Cocaine Screen Neg NEGATIVE Urine Cannabinoids Screen Neg NEGATIVE White Blood Count 5.9 4.4-10.8 10^3/uL Red Blood Count 4.08 L 4.5-5.90 10^6/uL Hemoglobin 13.6 13.5-17.5 g/dL Hematocrit 40.9 L 41.0-53.0 % Mean Corpuscular Volume 100.2 H 80.0-100.0 fL Mean Corpuscular Hemoglobin 33.4 H 28.0-32.0 pg Mean Corpuscular Hemoglobin Concent 33.3 32.0-36.0 g/dL Red Cell Distribution Width 13.5 11.8-14.3 % Platelet Count 274 140-450 10^3/uL Mean Platelet Volume 7.5 6.9-10.8 fL Neutrophils (%) (Auto) 67.6 37.0-80.0 % Lymphocytes (%) (Auto) 21.3 10.0-50.0 % Monocytes (%) (Auto) 6.6 0.0-12.0 % Eosinophils (%) (Auto) 3.7 0.0-7.0 % Basophils (%) (Auto) 0.8 0.0-2.0 % Neutrophils # (Auto) 4.0 1.6-8.6 10 ^3/uL Lymphocytes # (Auto) 1.3 0.4-5.4 10 ^3/uL Monocytes # (Auto) 0.4 0-1.3 10 ^3/uL Eosinophils # (Auto) 0.2 0-0.8 10 ^3/uL Basophils # (Auto) 0 0-0.2 10 ^3/uL Nucleated Red Blood Cells 0.0 % Prothrombin Time 10.6 9.3-11.8 sec Prothrombin Time INR 1.00 0.9-1.15 Activated Partial Thromboplast Time 27.4 24.5-34.5 SEC Sodium Level 139 136-145 mmol/L Potassium Level 4.8 3.5-5.1 mmol/L Chloride Level 107 98-107 mmol/L Carbon Dioxide Level 24 20-31 mmol/L Anion Gap 8 5-15 Blood Urea Nitrogen 18 9-23 mg/dL Creatinine 1.82 H 0.700-1.30 mg/dL Glomerular Filtration Rate Calc 39 >90 mL/min BUN/Creatinine Ratio 9.9 L 10.0-20.0 Serum Glucose 82 74-106 mg/dL Lactic Acid Level 0.8 0.4-2.0 mmol/L Calcium Level 9.7 8.7-10.4 mg/dL Magnesium Level 1.6 1.6-2.6 mg/dL Total Bilirubin 0.4 0.2-1.0 mg/dL Aspartate Amino Transferase (AST) 14 13-40 U/L Alanine Aminotransferase (ALT) 14 7-40 U/L Alkaline Phosphatase 61 46-116 U/L Troponin I High Sensitivity 3 L </=54 ng/L Total Protein 6.6 5.7-8.2 g/dL Albumin 4.5 3.2-4.8 g/dL Plasma/Serum Blood Alcohol 13.9 H <10 mg/dL Assessment Acute kidney injury hemodynamically mediated likely setting of hypotension decreased renal perfusion . Concurrently patient is on multiple sedative m edications was fully to polypharmacy and acute altered mental state Per family baseline history CKD two Hypotension + ETOH level risks concurrent medications including gabapentin and other sedative medications can lead to change in mental state. Ultrasound of the kidney unremarkable Renal function improving with IV fluid hydration I have discussed with patient's at bedside the polypharmacy can lead to change in mental state and discussed possibility of decreasing medications. Number Nephrology standpoint no further recommendations at this time I have given the patient my card and will recommend outpatient follow-up sign off Plan discussed with: Patient, Spouse JOSE ALICIA MD Jul 09, 2024 16:27
--- NOTE | 2024-07-09 17:55 | DVH ---
EXAM: MRI BRAIN HEAD WO CONTRAST HISTORY: ams rule out acvute cva COMPARISON: CT scan dated 07/08/2024 TECHNIQUE: MRI was performed utilizing multiple appropriate imaging planes and pulse sequences. FINDINGS: SUPRATENTORIAL REGION: No evidence for acute ischemia or intracranial hemorrhage. Old lacunar infarc ts are noted in the left basal ganglia. Scattered ill-defined FLAIR hyperintensities are noted within the bilateral periventricular region, kirk radiata and subcortical white matter. POSTERIOR FOSSA: Unremarkable. BRAINSTEM: No acute abnormality. An old lacunar infarct noted in the right side of the praveen. SELLAR/SUPRASELLAR REGION: Unremarkable. VENTRICLES, CISTERNS, SULCI: Age-appropriate. ORBITS: Unremarkable. PARANASAL SINUSES: Unremarkable. MASTOID AIR CELLS: Unremarkable. VASCULATURE: Unremarkable. BONES/ SOFT TISSUES: Unremarkable. OTHER: None. IMPRESSION: 1. No acute intracranial process identified. 2. Moderate chronic microvascular ischemic changes.
[2024-07-09] MEDS: TAMSULOSIN HYDROCHLORIDE 0.4 MG CAP PO SCH (18:00)
[2024-07-09] MEDS ORDERED: LISI10TA34 PO (18:12)
[2024-07-09] MEDS ORDERED: SERT-206 PO (18:12)
[2024-07-09] MEDS ORDERED: TAMS0.4C39 PO (18:15)
[2024-07-09] MEDS ORDERED: FENO50CA3 PO (18:15)
[2024-07-09] MEDS ORDERED: CHOL500033 PO (18:15)
[2024-07-09] MEDS ORDERED: ATOR10TA52 PO (18:17)
[2024-07-09] MEDS ORDERED: MIRT-94 PO (18:17)
[2024-07-09] MEDS ORDERED: GABA-1308 PO (18:20)
[2024-07-09] MEDS ORDERED: TIZA4CAP PO (18:20)
[2024-07-09] MEDS ORDERED: TRAZ-227 PO (18:20)
[2024-07-09] MEDS ORDERED: ASPI-543 PO (18:20)
[2024-07-09] MEDS ORDERED: HYDR-4798 PO (18:20)
[2024-07-09] MEDS ORDERED: traZODone HCL 50 MG TAB PO SCH (22:00)
[2024-07-09] MEDS ORDERED: ATORVASTATIN 20 MG TAB PO SCH (22:00)
== END 2024-07-09 18:55 | disposition home or self-care (01) | DRG 64 ==
LOC: EDBD 19:11 → ER 19:11 → TELE 23:16 → TELE-EAST 07-09 01:06
PROVIDERS: ADMIT Nurse Practitioner Family; ATTEND Nurse Practitioner Family
DX: I63.9 Cerebral infarction, unspecified (principal); G93.41 Metabolic encephalopathy; N17.0 Acute kidney failure with tubular necrosis; E86.0 Dehydration; E78.5 Hyperlipidemia, unspecified; F41.9 Anxiety disorder, unspecified; F51.04 Psychophysiologic insomnia; F17.200 Nicotine dependence, unspecified, uncomplicated; G89.29 Other chronic pain; I12.9 Hypertensive chronic kidney disease with stage 1 through stage 4 chronic kidney disease, or unspecified chronic kidney disease; E11.22 Type 2 diabetes mellitus with diabetic chronic kidney disease; N18.2 Chronic kidney disease, stage 2 (mild); F32.A Depression, unspecified; Z88.5 Allergy status to narcotic agent
CPT/HCPCS: 36415; 70450; 70551; 71045; 76775; 80053; 80307; 80320; 81001; 82962; 83605; 83735; 84484; 85025; 85610; 85730; 99291; G0378